=== PATIENT | female | born 1955 | race Hispanic/Latino ===

== ENCOUNTER → 2022-03-20 | Outpatient (CLI) | payer MEDICARE | END | disposition home or self-care (01) | LOC: RAH 15:39 | PROVIDERS: ATTEND Physical Medicine & Rehabilitation | DX: M47.26 Other spondylosis with radiculopathy, lumbar region (principal); M41.9 Scoliosis, unspecified; M41.85 Other forms of scoliosis, thoracolumbar region | CPT/HCPCS: 72082; 72110 ==